=== PATIENT | male | born 1985 | race Caucasian/White ===

== ENCOUNTER 2018-05-01 20:25 | Emergency (ER) | payer MEDICAID, OTHER ==
[~2018-05-01 20:25] MED LIST: CYCL-1 PO; ONDA4TAB6 PO
[2018-05-01 20:33] VITALS: BP 119/70
== END 2018-05-01 21:54 | disposition left against medical advice (07) ==
LOC: ER 20:26
DX: K08.89 Other specified disorders of teeth and supporting structures (principal); Z53.21 Procedure and treatment not carried out due to patient leaving prior to being seen by health care provider

== ENCOUNTER 2018-05-17 23:36 | Emergency (ER) | payer MEDICAID ==
[~2018-05-17] VITALS: Ht 172.7 cm; Wt 83.6 kg
[2018-05-18] MEDS ORDERED: HYDR-3965 PO (00:27)
[2018-05-18] MEDS ORDERED: PENI500T2 PO (00:27)
[2018-05-18] MEDS ORDERED: CLIN150C8 PO (00:27)
[2018-05-18 00:53] VITALS: BP 120/61
== END 2018-05-18 00:54 | disposition home or self-care (01) ==
LOC: ER 23:37
DX: K08.89 Other specified disorders of teeth and supporting structures (principal); F32.9 Major depressive disorder, single episode, unspecified; F12.10 Cannabis abuse, uncomplicated; Z88.5 Allergy status to narcotic agent; Z88.0 Allergy status to penicillin; Z88.1 Allergy status to other antibiotic agents; Z79.899 Other long term (current) drug therapy
CPT/HCPCS: 99283

== ENCOUNTER 2019-02-20 19:31 | Emergency (ER) | payer MEDICAID ==
[~2019-02-20] VITALS: Ht 172.7 cm; Wt 93.0 kg
[~2019-02-20 19:31] MED LIST changes: +CLIN150C8 PO; -CYCL-1 PO; -ONDA4TAB6 PO
[2019-02-20 19:39] VITALS: BP 127/67
[2019-02-20] MEDS ORDERED: dexamethasone 0.5 mg/5ml unit-dose oral solution PO STA (19:54)
[2019-02-20] MEDS ORDERED: AZIT250T83 PO (19:55)
[2019-02-20] MEDS ORDERED: dexamethasone sod phosphate 10mg/ml inj PO ONE (20:00)
== END 2019-02-20 20:07 | disposition home or self-care (01) ==
LOC: ER 19:32
DX: J01.20 Acute ethmoidal sinusitis, unspecified (principal); F17.210 Nicotine dependence, cigarettes, uncomplicated; F12.90 Cannabis use, unspecified, uncomplicated; Z88.6 Allergy status to analgesic agent
CPT/HCPCS: 99283; J1100; J8540

== ENCOUNTER 2019-02-23 09:17 | Emergency (ER) | payer MEDICAID ==
[~2019-02-23 09:17] MED LIST changes: +AZIT250T83 PO
== END 2019-02-23 10:38 | disposition left against medical advice (07) ==
LOC: ER 09:18
DX: R05 Cough (principal); Z53.21 Procedure and treatment not carried out due to patient leaving prior to being seen by health care provider; Z88.5 Allergy status to narcotic agent; Z79.899 Other long term (current) drug therapy